=== PATIENT | female | born 1970 | race Caucasian/White ===

== ENCOUNTER → 2019-10-16 | Outpatient (CLI) | payer BC ==
[~2019-10-16] MED LIST: NAPR220C4 PO
[2019-10-16 14:26] VITALS: BP 114/88
== END | disposition home or self-care (01) ==
LOC: SURG 14:05
PROVIDERS: ATTEND Anesthesiology Pain Medicine
DX: M54.12 Radiculopathy, cervical region (principal)
CPT/HCPCS: 99203

== ENCOUNTER → 2019-10-23 | Outpatient (CLI) | payer BC ==
[~2019-10-23] MED LIST changes: +0.9 % SODIUM CHLORIDE 10 ML VIAL ONE; +DEXAMETHASONE SOD PHOS 10 MG/ML VIAL ONE; +IOHEXOL 300 MG/ML 50 ML VIAL. ONE; +LIDOCAINE 1% PF 30 ML VIAL. ONE
[2019-10-23 11:40] VITALS: BP 153/80
== END ==
LOC: SURG 10:43
PROVIDERS: ATTEND Anesthesiology Pain Medicine
DX: M54.12 Radiculopathy, cervical region (principal)
CPT/HCPCS: 64479; J1100; J2001; Q9967